=== PATIENT | female | born 1955 | race Caucasian/White ===

== ENCOUNTER 2018-08-07 22:29 | Inpatient (IN) | payer OTHER, MEDICARE ==
[2018-08-07 22:56] LABS: #Basophils 0.1 thou/uL (0.0-0.2); #Lymphocytes 1.2 thou/uL (1.20-3.40); #Monocytes 0.3 thou/uL (0.11-0.59); #Neutrophils 2.4 thou/uL (1.40-6.50); %Basophils 2.1 % (0.0-1.0); %Eosinophils 1.2 % (0.0-10.0); %Lymphocytes 29.3 % (21.0-51.0); %Monocytes 8.4 % (0.0-10.0); Hemoglobin 12.9 g/dL (12.0-16.0); Mean Corpuscular HGB CONC 34.8 g/dL (32.0-36.0); Mean Corpuscular Hemoglobin 33.4 pg (27.0-31.0); Mean Corpuscular Volume 96.1 fL (78.0-98.0); Mean Platelet Volume 6.5 fL (7.4-10.4); Platelet Count 255 thou/uL (130-400); RBC Distribution Width 10.9 % (11.5-14.5); Red Blood Cell (RBC) Count 3.87 mill/uL (4.20-5.40)
[2018-08-07 23:02] LABS: PTT 26.9 SEC (22.9-36.1)
[2018-08-07 23:09] LABS: ALT (SGPT) 20 U/L (8-55); AST (SGOT) 24 U/L (5-34); Albumin 4.4 g/dL (3.4-4.8); Alkaline Phosphatase 61 U/L (40-150); Anion Gap 17 mmol/L (10-20); BUN (Urea Nitrogen) 14 mg/dL (9.8-20.1); Bilirubin, Total 0.6 mg/dL (0.2-1.2); CK (CPK) 134 U/L (29-168); Calc. Creatinine Clearance 0 mL/min (70-130); Calcium 8.9 mg/dL (7.8-10.44); Carbon Dioxide 21 mmol/L (23-31); Chloride 100 mmol/L (98-107); Estimated GFR-MDRD 87; Globulin 2.7 g/dL (2.4-3.5); Glucose 117 mg/dL (80-115); Potassium 3.8 mmol/L (3.5-5.1); Protein, Total 7.1 g/dL (6.0-8.3); Sodium 134 mmol/L (136-145)
[2018-08-07] MEDS ORDERED: niCARdipine 20MG In NaCl 20 MG/200 ML BAG ONE (23:09)
[2018-08-07 23:13] LABS: CKMB 4.5 ng/mL (0-6.6); Troponin I Less than 0.010 ng/mL (< 0.028)
--- NOTE | 2018-08-07 23:22 | CT ---
NONCONTRAST HEAD CT 08/07/18 HISTORY: Evaluate for stroke. COMPARISON: None. FINDINGS: There is an intraparenchymal hemorrhage centered in the right thalamus and right lentiform nucleus me asuring 1.0 x 1.7 cm. There is decompression of parenchymal hemorrhage into the right ventricular sys tem. Small amount of hemorrhage is also noted in the dependent portion of the left ventricle. There i s no midline shift. Cortical forde-white matter differentiation is preserved. The calvarium is intact. Adequate aeration of the sinuses and mastoid air cells. IMPRESSION: Intraparenchymal hemorrhage involving the deep forde matter structures on the right as well as the rig ht thalamus. There is decompression of parenchymal hemorrhage into the ventricular system without forrest dence of hydrocephalus. Results of the study discussed with Dr. Stalin Vaughn, 08/07/18 at 10:40 p.m. Code FRANKI POS: DANIELLA
[2018-08-07 23:49] LABS: Amphetamine Not Detected (NotDetected); Barbiturates Screen Not Detected (NotDetected); Benzodiazepine Screen Not Detected (NotDetected); Cocaine Metabolite Screen Not Detected (NotDetected); Medtox Control Line Valid? VALID (VALID); Medtox Reader # READER 1; Methadone Not Detected (NotDetected); Methamphetamine Not Detected (NotDetected); Opiate Screen Not Detected (NotDetected); Oxycodone Screen Not Detected (NotDetected); Phencyclidine (PCP) Not Detected (NotDetected); THC/Cannabinoid Screen Not Detected (NotDetected); Tricyclic Screen Not Detected (NotDetected)
[2018-08-08] MEDS ORDERED: Ondansetron PF 4 MG/2 ML Vial IVP PRN
[2018-08-08] MEDS ORDERED: Senokot S 8.6-50 MG TAB PO PRN
--- NOTE | 2018-08-08 00:10 | HP-2 ---
Erick Sam PA-C dictating for Mike Dill MD This is a 50-minute initial patient evaluation, in which greater than 50% of the exam was spent in co unseling and coordinating the patient's care. Remainder of the exam was spent in review of patient's medical records and review of appropriate imaging studies. CHIEF COMPLAINT: Sudden onset left-sided weakness, speech difficulties with right thalamic hemorrhag e. HISTORY OF PRESENT ILLNESS: Ms. Degroot is a pleasant 63-year-old female who presents to [facility] for the above complaints. Apparently at around 8:00 p.m. today, the patient had a grimm dden onset of left-sided weakness, left facial drooping and slurred speech. Subsequently brought to [facility] and a head CT was obtained showing a small right thalamic intraparenchymal hemorrhage or intracranial hemorrhage with some extension into the right ventricle. There are no sig ns of hydrocephalus at this time. There is no mass effect or midline shift or minimal if any midline shift. The patient denies headache, blurred vision, but does note continued weakness into the left arm greater than left leg. She continues with some left-sided facial droop. She denies any trauma o r falls. She states she knows she has high blood pressure and is not compliant with her medications. She does not use tobacco. Her presenting systolic blood pressure was in the 200s/100s. PHYSICAL EXAMINATION: The patient is awake, alert, and appropriate. GCS currently is 15. She follo ws commands equally in all 4 extremities, though does have moderate left arm greater than leg weaknes s. She is unable to lift the left arm above her head to correctly test for pronator drift. She has some difficulty with [id number] testing on the left given her left-sided weakness. Pupils are eq ual, round, and reactive bilaterally. She is able to correctly identify and define the purpose of a pen. She has no tenderness to palpation in the cervical spine. IMPRESSION AND DIAGNOSES: Sudden onset of left facial droop, slurred speech, left arm and leg weakne ss with right thalamic intraparenchymal hemorrhage. PLAN: I discussed the patient's case and imaging with Dr. Dill. At this time, we will admit the p atient to ICU for close neurologic monitoring with q.1-hour neuro checks. I have also ordered a repe at head CT in the morning, but certainly will repeat this should her neurologic status change. We al so ordered systolic blood pressure to remain less than 140. I would like her to be n.p.o. Head of b ed needs to be elevated at 30 degrees and she should remain on bed rest. Obviously, I discussed with the patient and her that there is no need for neurosurgical intervention at this time; howev er, blood pressure is paramount both in the hospital and when she is at home and I have discussed her compliance with blood pressure medications. The patient and her are appreciative of the wor kup at this time and again we will continue to monitor the patient closely.
[2018-08-08 00:41] VITALS: BMI 24.7
[2018-08-08] MEDS ORDERED: HOLD ALL BLOOD THINNERS FS SCH (00:45)
[2018-08-08] MEDS: Sodium Chloride 0.9% 1,000 ML IV SCH ×3 (00:56→20:24)
[2018-08-08] MEDS: niCARdipine HCl 25 MG in Sodium Chloride 0.9% 250 ML 240 ML IVPB PRN ×2 (01:18→06:37)
[2018-08-08] MEDS: Famotidine/PF 20 mg/2ml Vial SLOW IVP SCH ×2 (10:01→20:24)
[2018-08-08] MEDS: Labetalol HCl 100 MG/20 ML VIAL SLOW IVP PRN ×4 (10:10→20:48)
--- NOTE | 2018-08-08 16:06 | CT ---
PRELIMINARY REPORT/[facility]/EMERGENTY AFTER-HOURS PROCEDURE CT Head Without Intravenous Contrast EXAM DATE/TIME: 08/08/2018 4:17 AM CLINICAL HISTORY: 63 years old, female; Signs and symptoms; Cerebral degeneration; Cognitive impairment; Patient HX: Rai pandya, images on vrad , f63 presents to the ed due to stroke like symptoms onset 20:00. Ems reports notable left sided weakness. PT reports having 5 beers tonight but states that is normal for her. Pt 's speech is normal but ems reports HTN en rout, 215/110. Ems gave PT 20 total of labetalol. TECHNIQUE: Axial computed tomography images of the head/brain without intravenous contrast. COMPARISON: CT Brain WO Con 08/07/2018 10:35 PM FINDINGS: Brain: Redemonstrated is RIGHT basal ganglia parenchymal hemorrhage measuring up to 1.9 cm with exten filomena of hemorrhage into the RIGHT lateral ventricle and layering within the bilateral occipital horns , overall similar to prior. Midline shift: There is no midline shift. Ventricles: Ventricles are stable in size when compared with prior. Bones/joints: Normal. No acute fracture. Sinuses: Normal as visualized. No acute sinusitis. Mastoid air cells: Normal as visualized. No mastoid effusion. Soft tissues: Normal. IMPRESSION: RIGHT basal ganglia parenchymal hemorrhage with intraventricular extension as above, not significantl y changed from prior. Thank you for allowing us to participate in the care of your patient. Dictated and Authenticated by: Murray Brewer MD 08/08/2018 4:35 AM Central Time ([place] & [place]) FINAL REPORT BRAIN CT WITHOUT IV CONTRAST: EMERGENCY AFTER HOURS STUDY TIME: 4:19 a.m. DATE: 08/08/2018. COMPARISON: 08/07/2018. FINDINGS: Again noted is a right basal ganglia parenchymal hemorrhage and right ventricular hemorrhage unchange d from prior study. POS: SJ
[2018-08-08] MEDS ORDERED: Lisinopril 5 MG TAB PO SCH (16:45)
--- NOTE | 2018-08-08 17:30 | PRG ---
DATE OF SERVICE: 08/08/2018 This is a 30-minute initial hospital visit note, in which 30 minutes were spent in review of imaging and record, evaluation and examination of the patient, and greater than 50% of the time was spent cou nseling on Ms. Nandini Degroot. Ms. Degroot is admitted for right thalamic hypertensive hemorrhage. Her blood pressures have been u nder better control with nicardipine. She has left upper extremity spasticity, but otherwise is aler t and appropriate and sitting in a bedside chair. She moves her right side to command. The plan tammy l be basically to control hypertension, I would recommend systolic blood pressure below 150. We will arrange followup head CT in 1 month. She should remain off in my opinion, antiplatelet and anticoag ulant medication. We will sign off. IMPRESSION: Right thalamic hypertensive hemorrhage, stable on repeat CT.
[2018-08-08] MEDS: Lorazepam 1 MG TAB PO SCH (20:24)
--- NOTE | 2018-08-09 00:47 | CON ---
DATE OF CONSULTATION: 08/08/2018 CONSULTING PHYSICIAN: Mike Dill MD, Neurosurgery. PURPOSE OF CONSULTATION: Medical management of high blood pressure. HISTORY: The patient is a 63-year-old female, who was admitted to hospital yesterday with acute intracranial bleeding in the right basal ganglia. She lost full function of her left side of t he body and got admitted to the hospital. The CT of the brain showed a basal ganglia hemorrhage. Ok urosurgery admitted the patient to the floor and she was started on Cardene drip for the blood pressu re control. At the time of my consultation, Cardene drip is stopped and she is on p.r.n. labetalol I V push. She had second CT of the brain done this morning, which did not show any new findings. She seems to be doing somewhat better. PAST MEDICAL HISTORY: Positive for only hypertension. PAST SURGICAL HISTORY: Hysterectomy. SOCIAL HISTORY: She drinks more than 5 drinks per day that is beer only, does not drink. She does n ot smoke. She does not use any illicit drugs. FAMILY HISTORY: Both parents early in their 50s. MEDICATIONS: Famotidine 20 mg IV every 12 hours, Tylenol p.r.n., labetalol 10 mg slow IV push p.r.n. , nicardipine drip was stopped. IV fluids at 50 mL per hour, Zofran p.r.n. REVIEW OF SYSTEMS: All systems were reviewed and negative except for positives at HPI. PHYSICAL EXAMINATION: VITAL SIGNS: Blood pressure is 162/102, pulse is 98, respiratory rate 16, O2 saturation 99% on room air. HEENT: Her head is atraumatic, normocephalic. Eyes are PERRLA, sclerae is nonicteric. She has left facial droop. NECK: Supple. LUNGS: Clear. HEART: S1, S2 normal, no S3, no S4. ABDOMEN: Soft, nontender, nondistended. EXTREMITIES: No clubbing, cyanosis or edema. NEUROLOGIC: She is alert and oriented x4. There is not any sensory deficit. There is motor weaknes s of the left upper extremity and left lower extremity approximately 3/5 respectively. LABORATORY: No labs today. Plasma alcohol was 190 done yesterday. IMPRESSION: 1. Right basal ganglia intraparenchymally bleeding. 2. Alcohol abuse. 3. Leukopenia, most likely related to her alcohol use and some supression. 4. Alcohol. She should be on alcohol intoxication at the time of admission to the hospital. PLAN: Since her nicardipine drip was stopped, her blood pressure is going up. I am going to start h er on lisinopril 5 mg 1 dose now, then daily. Continue p.r.n. labetalol 10 mg IV push. We will star t her on lorazepam 0.5 mg twice a day to avoid withdrawal symptoms from her alcohol and she will be w atched closely for worsening of her intracranial bleeding and going to use SCDs for DVT prophylaxis.
--- NOTE | 2018-08-09 01:07 | CON ---
DATE OF CONSULTATION: 08/08/2018 Ms. Degroot is a pleasant 63-year-old female who has hypertension. She does not take her medicines. She quickly admits this. She had the day of admission sudden onset of left-sided weakness. CT scanning showed a right thalamic parenchymal hemorrhage. She had blood in the right ventricle. She says she is feeling better. She still has left-sided weakness and a mild amount of dysarthria. She also has facial droop. PAST HISTORY: She has never been hospitalized here in the recent past. Accessing the old computer records, she had several emergency room visits in 2011 and 2012. She is status post hysterectomy. SOCIAL HISTORY: She is a smoker and a daily drinker for about 6 pack of beer. FAMILY HISTORY: Not obtained. REVIEW OF SYSTEMS: A 10-point review of systems complted, otherwise negative. She denies shortness of breath, chest pain. PHYSICAL EXAMINATION: GENERAL: She denies shortness of breath, chest pain. VITAL SIGNS: She is 141/91, heart rate is 76, respiratory rate 16, oximetry is 99. HEENT: Pupils are equal. Sclerae is anicteric. Extraocular movements appear full. NECK: Supple, without lymphadenopathy. LUNGS: Clear. HEART: Regular rhythm. S1 and S2 are normal. ABDOMEN: Soft and nontender. EXTREMITIES: Without clubbing, cyanosis, or edema. She has left-sided weakness. As mentioned before, white count is 4, hemoglobin 12.9, platelets 255. Sodium 134, potassium 3.8, chloride 100, bicarbonate 21, BUN 14, creatinine 0.6. Protime was normal. IMPRESSION: 1. Parenchymal brain hemorrhage, unfortunately small. 2. History of poorly controlled hypertension. PLAN: Blood pressure management, transfer to Stroke Unit when a bed becomes available. She is being followed by Neurosurgery. We will sign off when she transfers out of the critical care unit. This is a 50-minute consult, with greater than 50% of the time was spent on the unit in coordinating care. LUCIANA
[2018-08-09] MEDS: Labetalol HCl 100 MG/20 ML VIAL SLOW IVP PRN ×4 (05:06→18:06)
[2018-08-09] MEDS: Acetaminophen 325 MG TAB PO PRN (05:09)
[2018-08-09] MEDS: Lorazepam 1 MG TAB PO SCH ×2 (08:33→22:09)
[2018-08-09] MEDS: Famotidine/PF 20 mg/2ml Vial SLOW IVP SCH ×2 (08:33→22:09)
[2018-08-09] MEDS ORDERED: Lisinopril 5 MG TAB PO SCH ×2 (09:00→11:05)
--- NOTE | 2018-08-09 11:21 | PRG ---
DATE OF SERVICE: 08/09/2018 Ms. Degroot has had marginally elevated blood pressures. She is not having any complaints. She is still weak in her left upper extremity, but says she feels like her left lower extremity is better and the right side is unchanged and normal. PHYSICAL EXAMINATION: VITAL SIGNS: Blood pressure 154/90, heart rate 67, respiratory rate is 21, oximetry is 100% on room air. LUNGS: Lungs are clear. HEART: Regular rhythm. ABDOMEN: Soft. LABORATORY DATA: White count 4.0 two days ago. Electrolytes were unremarkable 2 days ago, essentially there is no lab today. IMPRESSION: Brain hemorrhage likely related to uncontrolled hypertension. PLAN: I will increase her lisinopril to 10 mg a day starting tomorrow, . We will continue supportive care. She should be able to go to the stroke unit. LUCIANA
--- NOTE | 2018-08-09 18:09 | PDOC.PN ---
- Subjective Encounter Start Date: 08/09/18 Encounter Start Time: 18:00 Subjective: f/u for ICH in R basal ganglia medically managed. Still with residual L- -: sided weakness. Ready to go home. - Objective Resuscitation Status: Resuscitation Status FULL:Full Resuscitation MAR Reviewed: Yes Vital Signs & Weight: Vital Signs (12 hours) Temp Pulse Pulse BP BP BP Pulse Ox 08/09/18 16:13 73 08/09/18 16:00 98.3 F 08/09/18 12:00 97.8 F 08/09/18 11:55 65 160/90 H 08/09/18 09:29 71 154/90 H 155/89 H 08/09/18 08:33 69 146/87 H 08/09/18 08:00 97.8 F 100 Weight Weight 143 lb 15.39 oz Most Recent Monitor Data Heart Rate from ECG 68 NIBP 157/95 NIBP BP-Mean 115 Respiration from ECG 20 SpO2 100 I&O: 08/08/18 08/09/18 08/10/18 06:59 06:59 06:59 Intake Total 387 875 652 Output Total 250 2450 1000 Balance 137 -1575 -348 Result Diagrams: 08/07/18 22:46 08/07/18 22:46 Radiology Reviewed by me: Yes (CT brain - R basal ganglia parenchymal hemorrhage , stable) EKG Reviewed by me: Yes (Tele - SR) Phys Exam - Physical Examination Constitutional: NAD HEENT: PERRLA, sclera anicteric, oral pharynx no lesions Neck: no nodes, no JVD, supple, full ROM Respiratory: no wheezing, no rales, no rhonchi, clear to auscultation bilateral S1, S2 Cardiovascular: RRR, no significant murmur, no rub, gallop Gastrointestinal: soft, non-tender, no distention, positive bowel sounds Musculoskeletal: no edema, pulses present Neurological: normal sensation, moves all 4 limbs Psychiatric: A&O x 3 Skin: normal turgor, cap refill <2 seconds Dx/Plan (1) HTN (hypertension) Code(s): I10 - ESSENTIAL (PRIMARY) HYPERTENSION Status: Chronic Qualifiers: Hypertension type: essential hypertension Qualified Code(s): I10 - Essential (primary) hypertension Comment: Resume home Lisinopril 20mg daily, add Amlodipine 5mg daily, hold HCTZ due to hyponatremia (2) Intraparenchymal hemorrhage of brain Code(s): I61.9 - NONTRAUMATIC INTRACEREBRAL HEMORRHAGE, UNSPECIFIED Status: Acute Comment: Conservative mgmt, see above (3) Alcohol abuse Code(s): F10.10 - ALCOHOL ABUSE, UNCOMPLICATED Status: Acute Comment: Ativan 1mg po BID, ASE protocol (4) Hyponatremia Code(s): E87.1 - HYPO-OSMOLALITY AND HYPONATREMIA Status: Chronic Comment: Hold HCTZ, likely multifactorial give ETOH use and HCTZ - Plan plan discussed w/ family, PT/OT, social worker, out of bed/ambulate, DVT proph w/SCDs Stable currently -: Titrate BP regimen -: OOB/ambulate -: Hold HCTZ due to hyponatremia -: AM lab: BMP, CBC * Transfer to stroke * Likely home in 24h
[2018-08-09] MEDS ORDERED: Amlodipine 5 MG TAB PO SCH (18:15)
[2018-08-10] MEDS: Labetalol HCl 100 MG/20 ML VIAL SLOW IVP PRN ×6 (00:05→22:13)
[2018-08-10 05:20] LABS: Anion Gap 12 mmol/L (10-20); BUN (Urea Nitrogen) 10 mg/dL (9.8-20.1); Calc. Creatinine Clearance 88 mL/min (70-130); Calcium 9.1 mg/dL (7.8-10.44); Carbon Dioxide 24 mmol/L (23-31); Chloride 105 mmol/L (98-107); Estimated GFR-MDRD 90; Glucose 118 mg/dL (80-115); Sodium 137 mmol/L (136-145)
[2018-08-10 05:32] LABS: Eosinophils 2 % (0-10); Hemoglobin 12.9 g/dL (12.0-16.0); Lymphocytes 23 % (21-51); MDiff Complete? YES; Mean Corpuscular HGB CONC 33.5 g/dL (32.0-36.0); Mean Corpuscular Hemoglobin 32.7 pg (27.0-31.0); Mean Corpuscular Volume 97.6 fL (78.0-98.0); Mean Platelet Volume 6.9 fL (7.4-10.4); Monocytes 10 % (0-10); Neutrophil 60 % (42-75); Platelet Count 250 thou/uL (130-400); RBC Distribution Width 11.1 % (11.5-14.5); Reactive Lymphocytes 5 % (0-10); Red Blood Cell (RBC) Count 3.93 mill/uL (4.20-5.40); White Blood Cell (WBC) Count 4.3 thou/uL (4.8-10.8)
--- NOTE | 2018-08-10 08:33 | CT ---
PRELIMINARY REPORT/[facility]/EMERGENTY AFTER-HOURS PROCEDURE CT Head Without Intravenous Contrast EXAM DATE/TIME: 08/10/2018 5:41 AM CLINICAL HISTORY: 63 years old, female; Injury or trauma; Fall; Initial encounter; Bleeding / hemorrhage; Injury date: 08/10/2018; Injury details: PT fell getting out ot bed @ 5 am this am. Previous images on vr TECHNIQUE: Axial computed tomography images of the head/brain without intravenous contrast. COMPARISON: CT Brain WO Con 08/08/2018 4:17 AM FINDINGS: Brain: Parenchymal bleed in the right lentiform nuclei and right thalamus measuring approximately 2 c m in anterior posterior dimension, 8 mm transversely and extending cephalad to the centrum semiovale. Small amount of blood within the ventricular system. Surrounding vasogenic edema. Very mild mass effect from right to left of approximately 5 mm. Midline shift: -No bleed, mass, or shift of structures. Mild atrophy. Areas of low attenuation in the periventricular white matter believed to be the manifestatiion of small vessel ischemic disease. Ventricles: See Midline Shift Finding. Bones/joints: Normal. No acute fracture. Sinuses: Normal as visualized. No acute sinusitis. Mastoid air cells: Normal as visualized. No mastoid effusion. Soft tissues: Normal. IMPRESSION: 1. Parenchymal bleed in the right lentiform nuclei and right thalamus measuring approximately 2 cm in anterior posterior dimension, 8 mm transversely and extending cephalad to the centrum semiovale. Small amount of blood within the ventricular system. Surrounding vasogenic edema. Stable. 2. Very mild mass effect from right to left of approximately 5 mm. No significant change. Thank you for allowing us to participate in the care of your patient. Dictated and Authenticated by: Artur Duarte MD 08/10/2018 6:14 AM Central Time ([place] & [place]) FINAL REPORT CT BRAIN WITHOUT CONTRAST: Date: 08/10/18 FINDINGS/IMPRESSION: I agree with the preliminary report given by Cristel. POS: OFF
[2018-08-10] MEDS ORDERED: Amlodipine 5 MG TAB PO SCH (09:00)
[2018-08-10] MEDS ORDERED: Lisinopril 10 MG TAB PO SCH (09:00)
[2018-08-10] MEDS: Lisinopril 20 MG TAB PO SCH (09:39)
[2018-08-10] MEDS: Famotidine/PF 20 mg/2ml Vial SLOW IVP SCH ×2 (09:41→22:11)
[2018-08-10] MEDS: Lorazepam 1 MG TAB PO SCH ×2 (09:41→22:11)
--- NOTE | 2018-08-10 13:53 | PDOC.PN ---
- Subjective Encounter Start Date: 08/10/18 Encounter Start Time: 13:40 Subjective: f/u spontaneous ICH in R basal ganglia conservatively managed. Apparently -: fell this am while getting out of bed with small contusion/lac to occiput. -: CT brain showing no new acute process. - Objective Resuscitation Status: 08/10/18 12:10 Resuscitation Status Routine Resuscitation Status: FULL: Full Resuscitation Discussed with: Per previous order MAR Reviewed: Yes Vital Signs & Weight: Vital Signs (12 hours) Temp Pulse Resp BP BP BP Pulse Ox 08/10/18 11:59 97.9 F 68 20 142/91 H 98 08/10/18 09:41 70 156/93 H 08/10/18 09:40 70 156/93 H 08/10/18 09:39 156/93 H 08/10/18 08:00 136/87 08/10/18 07:35 99.2 F 70 20 190/100 H 97 08/10/18 06:22 144/86 H 08/10/18 06:17 61 170/88 H 08/10/18 05:20 82 181/106 H 08/10/18 04:48 97.5 F L 76 18 190/102 H 96 Weight Weight 143 lb 15.39 oz Most Recent Monitor Data Heart Rate from ECG 74 NIBP 170/93 NIBP BP-Mean 118 Respiration from ECG 22 SpO2 100 I&O: 08/09/18 08/10/18 08/11/18 06:59 06:59 06:59 Intake Total 875 1082 Output Total 2450 1000 Balance -1575 82 Result Diagrams: 08/10/18 04:41 08/10/18 04:41 Radiology Reviewed by me: Yes (CT brain - previous R basal ganglia ICH, edema) EKG Reviewed by me: Yes (Tele - SR) Phys Exam - Physical Examination Constitutional: NAD HEENT: PERRLA, sclera anicteric, oral pharynx no lesions Neck: no nodes, no JVD, supple, full ROM Respiratory: no wheezing, no rales, no rhonchi, clear to auscultation bilateral S1, S2 Cardiovascular: RRR, no significant murmur, no rub, gallop Gastrointestinal: soft, non-tender, no distention, positive bowel sounds Musculoskeletal: pulses present L-sided weakness, mild dysarthria Neurological: normal sensation, moves all 4 limbs Psychiatric: A&O x 3 Skin: normal turgor, cap refill <2 seconds Dx/Plan (1) HTN (hypertension) Code(s): I10 - ESSENTIAL (PRIMARY) HYPERTENSION Status: Chronic Qualifiers: Hypertension type: essential hypertension Qualified Code(s): I10 - Essential (primary) hypertension Comment: Labile, Resume home Lisinopril 20mg daily, increase Amlodipine 10mg daily, hold HCTZ due to hyponatremia (2) Intraparenchymal hemorrhage of brain Code(s): I61.9 - NONTRAUMATIC INTRACEREBRAL HEMORRHAGE, UNSPECIFIED Status: Acute Comment: Conservative mgmt, see above, no progression per CT imaging (3) Alcohol abuse Code(s): F10.10 - ALCOHOL ABUSE, UNCOMPLICATED Status: Acute Comment: Ativan 1mg po BID, ASE protocol (4) Hyponatremia Code(s): E87.1 - HYPO-OSMOLALITY AND HYPONATREMIA Status: Chronic Comment: Hold HCTZ, likely multifactorial give ETOH use and HCTZ - Plan plan discussed w/ family, PT/OT, social media marketing analyst, out of bed/ambulate, DVT proph w/SCDs Stable currently -: Hold all anticoagulation -: PT for mobilization, fall risk precautions -: Rehab screening due to ICH, falls -: SNF/Rehab options pending * .
[2018-08-11] MEDS: Labetalol HCl 100 MG/20 ML VIAL SLOW IVP PRN ×3 (04:18→16:57)
[2018-08-11] MEDS: Acetaminophen 325 MG TAB PO PRN (04:19)
[2018-08-11 06:57] LABS: Anion Gap 12 mmol/L (10-20); BUN (Urea Nitrogen) 13 mg/dL (9.8-20.1); Calc. Creatinine Clearance 81 mL/min (70-130); Carbon Dioxide 26 mmol/L (23-31); Chloride 100 mmol/L (98-107); Estimated GFR-MDRD 83; Glucose 105 mg/dL (80-115); Potassium 4.4 mmol/L (3.5-5.1); Sodium 134 mmol/L (136-145)
[2018-08-11 07:34] LABS: Hemoglobin 12.6 g/dL (12.0-16.0); Mean Corpuscular HGB CONC 34.9 g/dL (32.0-36.0); Mean Corpuscular Volume 97.4 fL (78.0-98.0); Mean Platelet Volume 7.5 fL (7.4-10.4); Platelet Count 261 thou/uL (130-400); RBC Distribution Width 11.1 % (11.5-14.5); Red Blood Cell (RBC) Count 3.72 mill/uL (4.20-5.40); White Blood Cell (WBC) Count 4.1 thou/uL (4.8-10.8)
[2018-08-11 07:52] LABS: Band 1 % (5-11); Eosinophils 1 % (0-10); Lymphocytes 36 % (21-51); MDiff Complete? YES; Monocytes 4 % (0-10); Neutrophil 56 % (42-75); RBC Morphology Normal; Reactive Lymphocytes 2 % (0-10)
[2018-08-11] MEDS ORDERED: Amlodipine 10 MG TAB PO SCH (09:00)
[2018-08-11] MEDS: Lorazepam 1 MG TAB PO SCH (09:44)
[2018-08-11] MEDS: Lisinopril 20 MG TAB PO SCH (09:44)
[2018-08-11] MEDS: Famotidine/PF 20 mg/2ml Vial SLOW IVP SCH (09:45)
--- NOTE | 2018-08-11 11:13 | PDOC.PN ---
- Subjective Encounter Start Date: 08/11/18 Encounter Start Time: 11:10 Subjective: f/u for ICH R basal ganglia with residual L-sided weakness. Appetite ok. - Objective Resuscitation Status - Order Detail: 08/10/18 12:10 Resuscitation Status Routine Resuscitation Status: FULL: Full Resuscitation Discussed with: Per previous order MAR Reviewed: Yes Vital Signs & Weight: Vital Signs (12 hours) Temp Pulse Pulse Pulse Resp BP BP 08/11/18 09:44 74 132/80 08/11/18 08:54 72 73 122/80 08/11/18 08:00 98.5 F 74 16 08/11/18 07:46 08/11/18 06:44 66 150/83 H 08/11/18 04:18 72 163/90 H 08/11/18 04:00 98.2 F 75 13 08/11/18 00:00 98.4 F 77 17 08/10/18 23:18 69 BP BP BP BP Pulse Ox 08/11/18 09:44 08/11/18 08:54 132/80 08/11/18 08:00 136/83 98 08/11/18 07:46 131/86 08/11/18 06:44 08/11/18 04:18 08/11/18 04:00 150/95 H 97 08/11/18 00:00 129/83 150/83 H 99 08/10/18 23:18 133/79 Weight Weight 143 lb 15.39 oz Most Recent Monitor Data Heart Rate from ECG 74 NIBP 170/93 NIBP BP-Mean 118 Respiration from ECG 22 SpO2 100 I&O: 08/10/18 08/11/18 08/12/18 06:59 06:59 06:59 Intake Total 1082 1120 Output Total 1000 Balance 82 1120 Result Diagrams: 08/11/18 05:36 08/11/18 05:36 EKG Reviewed by me: Yes (Tele - SR) Phys Exam - Physical Examination Constitutional: NAD HEENT: PERRLA, sclera anicteric, oral pharynx no lesions Neck: no nodes, no JVD, supple, full ROM Respiratory: no wheezing, no rales, no rhonchi, clear to auscultation bilateral S1, S2 Cardiovascular: RRR, no significant murmur, no rub, gallop Gastrointestinal: soft, non-tender, no distention, positive bowel sounds Musculoskeletal: no edema, pulses present L-hemiparesis Neurological: normal sensation, moves all 4 limbs Psychiatric: A&O x 3 Skin: normal turgor, cap refill <2 seconds Dx/Plan (1) HTN (hypertension) Code(s): I10 - ESSENTIAL (PRIMARY) HYPERTENSION Status: Chronic Qualifiers: Hypertension type: essential hypertension Qualified Code(s): I10 - Essential (primary) hypertension Comment: Labile, Resume home Lisinopril 20mg daily, increase Amlodipine 10mg daily, hold HCTZ due to hyponatremia, improved BP trend (2) Intraparenchymal hemorrhage of brain Code(s): I61.9 - NONTRAUMATIC INTRACEREBRAL HEMORRHAGE, UNSPECIFIED Status: Acute Comment: Conservative mgmt, see above, no progression per CT imaging (3) Alcohol abuse Code(s): F10.10 - ALCOHOL ABUSE, UNCOMPLICATED Status: Acute Comment: Ativan 1mg po BID, ASE protocol (4) Hyponatremia Code(s): E87.1 - HYPO-OSMOLALITY AND HYPONATREMIA Status: Chronic Comment: Hold HCTZ, likely multifactorial give ETOH use and HCTZ - Plan plan discussed w/ family, PT/OT, nursing home social worker, out of bed/ambulate, DVT proph w/SCDs Stable overall -: Continue general stroke protocol -: Continue Amlodipine/Lisinopril -: OOB with PT -: CM for SNF options, likely [facility] * .
--- NOTE | 2018-08-11 11:43 | PQF ---
CLINICAL DOCUMENTATION IMPROVEMENT CLARIFICATION FORM: ICD-10 Updated PLEASE DO AN ADDENDUM TO THE PROGRESS NOTE WITH ANY DOCUMENTATION UPDATES OR ADDITIONS AND CARRY THROUGH TO DC SUMMARY. THANK YOU. DATE: 08/11/18 ATTN: Dr. Yang Please exercise your independent, professional judgment in responding to the clarification form. Clinical indicators are provided on the bottom of this form for your review Please check appropriate box(s): [ ] Cerebral edema / Vasogenic edema [ ] Compression of brain Due to: [ ] Intracranial hematoma [ ] Traumatic brain injury [ x ] Other diagnosis __Intraparenchymal hemorrhage, minimal edema [ ] Unable to determine In addition, please specify: Present on Admission (POA): [ ] Yes [ ] No [ x ] Unable to determine For continuity of documentation, please document condition throughout progress notes and discharge summary. Thank You. CLINICAL INDICATORS - SIGNS / SYMPTOMS / LABS PN 08/10: Radiology: CT BRAIN - previous R basal ganglia ICH, edema CT SCAN BRAIN WO CON. 08/10: Parenchymal bleed in the r lentiform nuclei and r thalamus measuring approximately 2 cm in anterior posterior dimension. 8 mm transversely and extending cephalad to the centrum semiovale. Small amt of blood w/in the ventricular system. Surrounding vasogenic edema. Stable RISKS: H&P 08/07: Sudden onset of L facial droop. slurred speech, L arm and leg weakness with R thalamic intraparenchymal; hemorrhage. PN 08/10: Apparently fell this am while getting out of bed with small contusion/ lac to occiput. Essential HTN. Alcohol abuse. Hyponatremia. TREATMENT: H&P: Admit ICU for close neurologic monitoring with Neuro checks Q1hr. Repeat head CT in the morning Order 08/08: hold all blood thinners Thank you, Evangelina (This form is maintained as a part of the permanent medical record) 2014 [employer] All Rights Reserved Evangelina Aguirre RN, BSN [email or web address] Office: [phone] [facility]
[2018-08-11 16:16] VITALS: TEMP 98.3
[2018-08-11 16:58] VITALS: BP 141/93
--- NOTE | 2018-08-13 18:31 | DIS ---
DATE OF ADMISSION: 08/07/2018 DATE OF DISCHARGE: 08/11/2018 DISCHARGE DIAGNOSES: 1. Acute intraparenchymal hemorrhage, spontaneous, likely hypertensive induced, stable. 2. Hypertension, improved. 3. Alcohol use. 4. Hyponatremia chronic. CONSULTATIONS: 1. Dr. Dill with Neurosurgery Service. 2. Dr. Joseph with Pulmonary/Critical Care Service. PERTINENT LABORATORY DATA AND IMAGING STUDIES: Sodium ranged between 134 to 137. LFTs within normal limits. Troponin I negative x1. Albumin 4.4. CBC showed a white blood cell count ranged between 4.0 to 4.3, hemoglobin ranged between 12.6 to 12.9. PT 13.0, INR 1.0, and PTT 26.9. Urine drug screen dated 08/07/2018, showed plasma alcohol level of 190. CT of the brain without contrast dated 08/07/2018 showed intraparenchymal hemorrhage of the deep forde matter of the right thalamic region. Decompression of parenchymal hemorrhage into the right ventricular system without hydrocephalus. CT of the brain without contrast dated 08/08/2018, showed right basal ganglia parenchymal hemorrhage with intraventricular extension. CT of the brain without contrast dated 08/10/2018, showed parenchymal bleed in the right lentiform nuclei and right thalamus approximately 2 cm. Very mild mass effect of right to left approximately 5 mm. HOSPITAL COURSE: The patient was initially admitted to the Critical Care Unit after presenting with left-sided weakness and dysarthria. The patient underwent urgent CT imaging of the brain showing evidence of her thalamic hemorrhage as stated previously. Presentation was likely spontaneous hemorrhage on the context of uncontrolled hypertension and not traumatic in nature. The patient was initially noted with blood pressures in the 200s/100s and placed on Cardene infusion. The patient was monitored per neurosurgical recommendations with overall stabilization of blood pressure. The patient was observed with serial CT imaging without recommendations for acute intervention. The patient avoided all NSAIDs and anticoagulation, and stabilized clinically. The patient was noted with residual left-sided weakness and mild dysarthria; however, the neurologic deficits were clinically stabilizing and the patient was transferred to the Stroke unit. The patient was evaluated by the Physical and Occupational Therapy Service and deemed an appropriate candidate for ongoing skilled care after discharge. The patient sustained a fall in her room due to left-sided weakness with mild contusion to the occiput region. The patient underwent CT imaging of the brain at that time showing overall stable findings without worsening or acute findings. I have examined the patient at the time of discharge and discussed followup instructions. The patient and verbalized understanding and agreement and ready for discharge on 08/11/2018. DISCHARGE MEDICATIONS: 1. Amlodipine 10 mg one tablet p.o. daily. 2. Lisinopril 20 mg p.o. daily. 3. Ativan 1 mg p.o. b.i.d. 4. Premarin 0.45 mg p.o. daily. FOLLOWUP: The patient will follow up with her primary care provider Laury Blackwell at [facility] after discharge. CONDITION ON DISCHARGE: Fair. ACTIVITY: Ad-darcie. DIET: Heart healthy. CODE STATUS: Full. DISPOSITION: Discharged to [facility] on 08/11/2018. TIME SPENT: Total time preparing and coordinating discharge is 32 minutes. Job ID: [id number]
--- NOTE | 2018-08-14 14:27 | EKG ---
Test Reason : Blood Pressure : / mmHG Vent. Rate : 076 BPM Atrial Rate : 076 BPM P-R Int : 110 ms QRS Dur : 094 ms QT Int : 416 ms P-R-T Axes : 000 001 051 degrees QTc Int : 468 ms Sinus rhythm with short [place] Otherwise normal ECG Confirmed by AMARA LOPEZ MD ([id number]), newspaper editor managing KAYLEY DAWSON ([id number]) on 08/14/2018 2:27:06 PM Referred By: Confirmed By:AMARA LOPEZ MD
== END 2018-08-11 18:00 | DRG 64 ==
LOC: ERS 22:29 → CCU 23:15 → 2SE 08-09 19:23
PROVIDERS: ADMIT Surgery; ATTEND Surgery
DX: I62.9 Nontraumatic intracranial hemorrhage, unspecified (principal); G93.6 Cerebral edema; G81.94 Hemiplegia, unspecified affecting left nondominant side; E87.1 Hypo-osmolality and hyponatremia; R47.1 Dysarthria and anarthria; I10 Essential (primary) hypertension; S00.03XA Contusion of scalp, initial encounter; W18.30XA Fall on same level, unspecified, initial encounter; Y92.230 Patient room in hospital as the place of occurrence of the external cause; R29.810 Facial weakness; R47.81 Slurred speech; Z91.14 Patient's other noncompliance with medication regimen; F10.10 Alcohol abuse, uncomplicated; R29.704 NIHSS score 4
CPT/HCPCS: 36415; 36416; 70450; 80048; 80053; 80306; 80307; 82550; 82553; 84484; 85007; 85025; 85027; 85610; 85730; 93005; G8978-GP-CL; G8979-GP-CI; G8987-GO-CJ; G8988-GO-CI; G9165-GN-CL; G9166-GN-CI; J7050; S0028

== ENCOUNTER 2021-07-09 09:23 | Outpatient (CLI) | payer MEDICARE, OTHER | END 2021-07-09 09:24 | disposition home or self-care (01) | LOC: BICMAMMO 09:23 | PROVIDERS: ATTEND Obstetrics & Gynecology | DX: Z12.31 Encounter for screening mammogram for malignant neoplasm of breast (principal); Z80.3 Family history of malignant neoplasm of breast | CPT/HCPCS: 77063; 77067 ==

== ENCOUNTER 2024-03-15 11:56 | Emergency (ER) | payer MEDICARE | END 2024-03-15 15:55 | disposition home or self-care (01) | LOC: ERS 11:56 | DX: S01.01XA Laceration without foreign body of scalp, initial encounter (principal); S20.211A Contusion of right front wall of thorax, initial encounter; I10 Essential (primary) hypertension; W18.2XXA Fall in (into) shower or empty bathtub, initial encounter; Y93.E1 Activity, personal bathing and showering; Y92.002 Bathroom of unspecified non-institutional (private) residence as the place of occurrence of the external cause | CPT/HCPCS: 70450 ==

== ENCOUNTER 2024-03-20 09:14 | Emergency (ER) | payer MEDICARE | END 2024-03-20 09:40 | disposition home or self-care (01) | LOC: ERS 09:14 | DX: S01.01XD Laceration without foreign body of scalp, subsequent encounter (principal); I10 Essential (primary) hypertension; Z79.899 Other long term (current) drug therapy; W19.XXXD Unspecified fall, subsequent encounter ==